=== PATIENT | male | born 1955 | race Caucasian/White ===

== ENCOUNTER 2017-06-12 18:31 | Emergency (ER) | payer OTHER ==
[~2017-06-12] VITALS: Ht 177.8 cm; Wt 81.6 kg
[2017-06-12 18:35] VITALS: BP_SYST 152
[2017-06-12 18:45] VITALS: BP_SYST 144
== END 2017-06-12 18:45 ==
LOC: SED 18:31
DX: Z04.1 Encounter for examination and observation following transport accident (principal)
CPT/HCPCS: 99283